=== PATIENT | male | born 1995 | race Two or more races ===

== ENCOUNTER → 2019-10-23 | Emergency (ER) | payer MEDICAID, OTHER ==
[~2019-10-23] VITALS: Ht 177.8 cm; Wt 79.4 kg
[~2019-10-23] MED LIST: LORazepam 2MG/ML-1ML VIAL IV ONE; SODIUM CHLORIDE 0.9% 1,000 ML IV ONE; cefTRIAXone 1GM/50ML D5W 50 ML IV ONE; cefTRIAXone W LIDOCAINE 1 GM IM IM ONE
[2019-10-23 16:37] LABS: Eosinophils # (auto) 0.1 10 ^3/uL (0-0.8); Eosinophils % (auto) 0.4 % (0.0-7.0); Lymphocytes # (auto) 2.2 10 ^3/uL (0.4-5.4); Lymphocytes % (auto) 10.6 % (10.0-50.0); Mean Corpuscular Hemoglobin 23.1 pg (28.0-32.0); Neutrophils # (auto) 17.4 10 ^3/uL (1.6-8.6)
[2019-10-23 16:38] LABS: Basophils # (auto) 0 10 ^3/uL (0-0.2); Basophils % (auto) 0.2 % (0.0-2.0); Hematocrit 38.3 % (41.0-53.0); Mean Corpuscular Hgb Conc. 31.3 g/dL (32.0-36.0); Mean Corpuscular Volume 73.9 fL (80.0-100.0); Monocytes % (auto) 4.6 % (0.0-12.0); Neutrophils % (auto) 84.2 % (37.0-80.0); Platelet Count (auto) 161 10^3/uL (140-450); Red Blood Cells 5.18 10^6/uL (4.5-5.90); Red Cell Distribution Width 14.6 % (11.8-14.3); White Blood Cell 20.7 10^3/uL (4.4-10.8)
[2019-10-23 16:52] LABS: Albumin 3.6 g/dL (3.4-5.0); Calcium 7.8 mg/dL (8.5-10.1); Potassium 3.2 mmol/L (3.5-5.1)
[2019-10-23 16:55] LABS: BUN/Creatinine Ratio 11.6; Bilirubin, Total 0.5 mg/dL (0.2-1.0); Total Protein 6.8 g/dL (6.4-8.2)
[2019-10-23 18:49] VITALS: BP 122/69
== END | disposition home or self-care (01) ==
LOC: ER 14:35 → EDBD 14:35
DX: R56.9 Unspecified convulsions (principal); D72.829 Elevated white blood cell count, unspecified; E87.6 Hypokalemia; J40 Bronchitis, not specified as acute or chronic
CPT/HCPCS: 36415; 70450; 71045; 80053; 85025; 96365; 96367; 99285; J0696; J1953; J2060; J7030; J7060